=== PATIENT | female | born 1980 | race African-American/Black ===

== ENCOUNTER 2017-02-27 19:05 | Emergency (ER) | payer MEDICAID, OTHER ==
[~2017-02-27] VITALS: Ht 162.6 cm; Wt 97.5 kg
[2017-02-27] MEDS ORDERED: NKM (19:14)
--- NOTE | 2017-02-27 19:43 | Emergency Room Report ---
History of Present Illness General Chief Complaint: Upper Respiratory Illness Source: Patient Present Illness HPI 36 -year-old female presents to the emergency department complaining of persistent cough with intermittent clear sputum x3 weeks. Patient states initially cough presented with fevers and chills which resolved with over-the- counter medications however patient states that her cough has progressed and become more consistent. Patient denies SOB, however states that deep breaths will instigate cough. Patient reports nasal congestion. Denies rhinorrhea. Patient reports fatigue. Patient denies neck pain or stiffness. denies hx of asthma, COPD, or smoking. She denies ill contacts or recent travel. Denies CP , Palpitations, LOC, AMS, dizziness, Changes in Vision, Sensation, paresthesias , or a sudden severe headache. Allergies: Coded Allergies: ACETAMINOPHEN (Verified Allergy, Mild, Rash, 02/27/17) HYDROCODONE (Verified Allergy, Mild, Rash, 02/27/17) Patient History Past Medical History: see triage record Past Surgical History: none Pertinent Family History: none Last Menstrual Period: 02/26/17 Now: No : 0 Para: 0 Reviewed Nursing Documentation: PMH: Agreed, PSxH: Agreed Nursing Documentation-PMH Past Medical History: No Stated History Review of Systems All Other Systems: negative except mentioned in HPI Physical Exam Vital Signs Date Time Temp Pulse Resp B/P Pulse Ox O2 Delivery O2 Flow Rate FiO2 02/27/17 19:09 97.9 89 15 149/107 97 Room Air Sp02 EP Interpretation: reviewed, normal General Appearance: no apparent distress, alert, GCS 15, non-toxic Head: normocephalic, atraumatic Eyes: bilateral eye PERRL, bilateral eye normal inspection ENT: hearing grossly normal, normal pharynx, normal voice Neck: full range of motion, no meningismus, no bony tend Respiratory: chest non-tender, normal breath sounds, no rhonchi, speaking full sentences, wheezing - scant wheezes bilaterally Cardiovascular #1: regular rate, rhythm Musculoskeletal: back normal, gait/station normal, normal range of motion, non- tender Neurologic: alert, oriented x3, responsive, motor strength/tone normal, sensory intact, speech normal Psychiatric: judgement/insight normal, memory normal, mood/affect normal Skin: normal color, no rash, warm/dry, well hydrated Lymphatic: no adenopathy Medical Decision Making PA Attestation Dr. Reilly is my supervising Physician whom patient management has been discussed with. Diagnostic Impression: Primary Impression: Atypical pneumonia ER Course 36 -year-old female presents to the emergency department complaining of persistent cough with intermittent clear sputum x3 weeks. Patient states initially cough presented with fevers and chills which resolved with over-the- counter medications however patient states that her cough has progressed and become more consistent. Patient denies SOB, however states that deep breaths will instigate cough. Patient reports nasal congestion. Denies rhinorrhea. Patient reports fatigue. Patient denies neck pain or stiffness. denies hx of asthma, COPD, or smoking. She denies ill contacts or recent travel. Denies CP , Palpitations, LOC, AMS, dizziness, Changes in Vision, Sensation, paresthesias , or a sudden severe headache. Ddx considered but are not limited to URI, pneumonia, PE, strep pharyngitis, meningitis. Vital signs: Pt. is afebrile, the remaining VS are WNL H&PE are most consistent with URI- no meningeal signs, oropharynx is not involved. due to prolonged symptoms greater than 3 weeks not responsive to conservative therapy. pt. meets requirements for antibiotic treatment. ORDERS: none required at this time, the diagnosis is clinical ED INTERVENTIONS: None required at this time. Pt. states she has tolerate codeine in the past. d/w pt. that I will also rx Tessalon pearls as alternative if she finds that Pmthz/codeine causes her to itch. pt. reports allergy is only to Vicodin... see nursing documentation for additional documentation of tolerance. DISCHARGE: At this time pt. is stable for d/c to home. Will provide printed patient care instructions, and any necessary prescriptions. Care plan and follow up instructions have been discussed with the patient prior to discharge. Last Vital Signs Date Time Temp Pulse Resp B/P Pulse Ox O2 Delivery O2 Flow Rate FiO2 02/27/17 19:19 89 15 Room Air 02/27/17 19:09 97.9 149/107 97 Disposition: HOME, SELF-CARE Condition: Stable Scripts Albuterol Sulfate* (ALBUTEROL SULFATE MDI*) 8.5 Gm Hfa.aer.ad 2 PUFF INH Q3H, #1 INH 0 Refills Prov: nAnita Cadena.[email or web address] 02/27/17 Azithromycin* (ZITHROMAX*) 250 Mg Tablet 250 MG ORAL DAILY, #6 TAB 0 Refills Take two tables once daily for 1 day, then one tablet once daily for 4 days. Prov: Annita Cadena 02/27/17 Benzonatate* (TESSALON PERLE*) 100 Mg Capsule 100 MG ORAL THREE TIMES A DAY for 5 Days, #15 PERLE Prov: Annita Cadena 02/27/17 Codeine/Promethazine Hcl* (PROMETHAZINE-CODEINE SYRUP*) 118 Ml Syrup 5 ML ORAL Q6H Y for For Cough, #240 ML 0 Refills Prov: Annita Cadena 02/27/17 Departure Forms: Return to Work Return to Work Date: Mar 03, 2017 Work Restrictions: None Return to Full Activity: Mar 03, 2017 Patient Instructions: Acute Bronchitis Additional Instructions: Take medications as directed. Follow up with a Primary Care Provider in 3-5 days, even if your symptoms have resolved. --Please review list of primary care clinics, if you do not already have a primary care provider Return sooner to ED if new symptoms occur, or current symptoms become worse. Do not drink alcohol, drive, or operate heavy machinery while taking cough syrup as this may cause drowsiness. - Please note that this Emergency Department Report was dictated using [employer] shop supervisor technology software, occasionally this can lead to erroneous entry secondary to interpretation by the dictation equipment. Annita Cadena Feb 27, 2017 19:43
[2017-02-27] MEDS ORDERED: PROMETHAZINE-C118 M1 ORAL (19:53)
[2017-02-27] MEDS ORDERED: TESSALON PERLE100 MG ORAL (19:53)
[2017-02-27] MEDS ORDERED: ZITHROMAX250 MG ORAL (19:53)
[2017-02-27] MEDS ORDERED: ALBUTEROL SULF8.5 GM INH (19:53)
[2017-02-27 20:04] VITALS: BP 149/107
== END 2017-02-27 20:04 | disposition home or self-care (01) ==
LOC: EMR 20:00
DX: J18.9 Pneumonia, unspecified organism (principal); Z88.6 Allergy status to analgesic agent
CPT/HCPCS: 99284